=== PATIENT | female | born 1990 | race Two or more races ===

== ENCOUNTER 2023-10-10 11:15 | Inpatient (IN) | payer MEDICAID, OTHER ==
[~2023-10-10] VITALS: Ht 152.4 cm; Wt 89.8 kg
[2023-10-10] MEDS ORDERED: PENICILLIN G POT 5MIL/D5 50ML 50 ML IV ONE (12:00)
[2023-10-10] MEDS ORDERED: NALOXONE HCL 0.4 MG/ML VIAL IV ONE (12:00)
[2023-10-10] MEDS ORDERED: ROPIVACAINE 0.5% (5MG/ML) 20ML AMPULE IJ ONE (12:00)
[2023-10-10] MEDS ORDERED: LIDOCAINE HCL 2 %PF INJ 10ML AMP IJ ONE (12:00)
[2023-10-10] MEDS ORDERED: BUTORPHANOL TARTRATE 2 MG/1 ML VIAL IV PRN ×2 (12:00)
[2023-10-10] MEDS ORDERED: LACTATED RINGER'S 1,000 ML IV SCH (12:00)
[2023-10-10] MEDS ORDERED: fentaNYL CITRATE 100 MCG/2 ML VL IV ONE (12:00)
[2023-10-10] MEDS ORDERED: LACT. RINGERS/OXYTOCIN 20UNITS 1,000 ML IV SCH (12:00)
[2023-10-10] MEDS ORDERED: ePHEDrine SULFATE 50 MG/ML AMP IV ONE (12:00)
[2023-10-10] MEDS ORDERED: LIDOCAINE 2%HCL (LOCAL ANESTH.) INJ 20ML MDV IJ PRN (12:00)
[2023-10-10] MEDS: LACT. RINGERS/OXYTOCIN 20UNITS 500 ML IV ONE ×2 (12:20→12:22)
[2023-10-10] MEDS ORDERED: METHYLERGONOVINE MALEATE 0.2 MG/ML AMP IM ONE ×2 (12:21→12:22)
[2023-10-10] MEDS: WITCH HAZEL-GLYCERIN PAD TOP PRN (12:27)
[2023-10-10] MEDS: DERMOPLAST 60ML BOTTLE TOP PRN (12:27)
[2023-10-10] MEDS: PHISODERM TOP SOLN 240ML BTL TOP PRN (12:27)
[2023-10-10] MEDS ORDERED: ONDANSETRON ODT 4 MG TAB PO PRN (12:30)
[2023-10-10 13:17] LABS: Urine Bacteria NONE SEEN /hpf (None Seen); Urine Blood 2+ /uL (Negative); Urine Clarity Clear (Clear); Urine Protein, UAD Negative (Negative); Urine Specific Gravity 1.006 (1.001-1.035); Urine Urobilinogen Normal (Negative); Urine WBC 7 /hpf (0 - 5); Urine pH 6.5 (5.0-8.0)
[2023-10-10 13:19] LABS: Urine Color Straw (Yellow)
[2023-10-10 13:27] LABS: Amphetamine Screen, Urine Neg (NEGATIVE)
[2023-10-10 13:28] LABS: Barbiturate Scree,Urine Neg (NEGATIVE); Benzodiazephine Screen, Urine Neg (NEGATIVE); Cannabinoid Screen, Urine Neg (NEGATIVE); Cocaine Screen, Urine Neg (NEGATIVE); Opiate Scree,Urine Neg (NEGATIVE); Phencyclidine Screen, Urine Neg (NEGATIVE)
[2023-10-10 13:33] LABS: Basophils # (auto) 0 10 ^3/uL (0-0.2); Basophils % (auto) 0.2 % (0.0-2.0); Eosinophils # (auto) 0 10 ^3/uL (0-0.8); Eosinophils % (auto) 0.1 % (0.0-7.0); Hematocrit 42.4 % (36.0-46.0); Lymphocytes # (auto) 1.8 10 ^3/uL (0.4-5.4); Lymphocytes % (auto) 9.1 % (10.0-50.0); Mean Corpuscular Hemoglobin 29.2 pg (28.0-32.0); Mean Corpuscular Hgb Conc. 33.1 g/dL (32.0-36.0); Mean Corpuscular Volume 88.1 fL (80.0-100.0); Monocytes # (auto) 0.8 10 ^3/uL (0-1.3); Monocytes % (auto) 3.8 % (0.0-12.0); Neutrophils # (auto) 17.3 10 ^3/uL (1.6-8.6); Neutrophils % (auto) 86.8 % (37.0-80.0); Red Blood Cells 4.81 10^6/uL (4.0-5.20); Red Cell Distribution Width 13.6 % (11.8-14.3)
[2023-10-10 13:47] LABS: INR 0.92 (0.9-1.15); Partial Thromboplastin Time 27.1 SEC (24.5-34.5); Prothrombin Time 9.7 sec (9.3-11.8)
[2023-10-10 13:52] LABS: Alkaline Phosphatase 126 U/L (46-116); Calcium 9.1 mg/dL (8.5-10.1); Carbon Dioxide 19 mmol/L (20-30); Chloride 105 mmol/L (98-107)
[2023-10-10 13:53] LABS: Albumin 3.9 g/dL (3.2-4.8); Anion Gap 12 (5-15); Aspartate Aminotransferase 19 U/L (13-40); BUN/Creatinine Ratio 12.8 (10.0-20.0); Bilirubin, Total 0.5 mg/dL (0.2-1.0); Blood Urea Nitrogen 6 mg/dL (9-23); Glucose 79 mg/dL (74-106); Potassium 3.4 mmol/L (3.5-5.1); Sodium 136 mmol/L (136-145); Total Protein 6.6 g/dL (5.7-8.2)
[2023-10-10 14:23] LABS: Alanine Aminotransferase < 9 U/L (7-40)
[2023-10-10 15:12] VITALS: BP 125/74; PULSE 86; RESP 16; TEMP 98.3; O2SAT 98
[2023-10-10] MEDS ORDERED: PENICILLIN G POTASSIUM 2,500,000 UNITS in D5W 5% 50 ML IV SCH (16:00)
[2023-10-10 19:00] VITALS: BP 120/78; PULSE 91; RESP 16; TEMP 98.1; O2SAT 96
[2023-10-10] MEDS: IBUPROFEN 600 MG TAB PO PRN (19:20)
[2023-10-10] MEDS ORDERED: DOCUSATE SOD 100 MG CAP PO SCH (22:00)
[2023-10-10 23:00] VITALS: BP 120/63; PULSE 76; RESP 14; TEMP 97.8; O2SAT 95
[2023-10-11 03:15] VITALS: BP 137/65; PULSE 76; RESP 16; TEMP 98; O2SAT 97
[2023-10-11] MEDS: ACETAMINOPHEN 325 MG TAB PO PRN (03:25)
[2023-10-11 07:00] VITALS: BP 134/78; PULSE 101; RESP 16; TEMP 97.8; O2SAT 100
[2023-10-11 07:07] LABS: RPR Non Reactive (Non Reactive)
[2023-10-11] MEDS ORDERED: PREN-96 PO (08:00)
[2023-10-11 11:00] VITALS: BP 119/80; PULSE 81; RESP 16; TEMP 97.8; O2SAT 97
[2023-10-14 18:06] LABS: Treponema pallidum Ab (FTA-Ab) Non Reactive (Non Reactive)
== END 2023-10-11 14:48 | disposition home or self-care (01) | DRG 560 ==
LOC: LDRP 11:15
PROVIDERS: ADMIT Obstetrics & Gynecology; ATTEND Obstetrics & Gynecology
PROC: 10E0XZZ Delivery of Products of Conception, External Approach (ICD-10-PCS; principal; 2023-10-10)
DX: O69.81X0 Labor and delivery complicated by cord around neck, without compression, not applicable or unspecified (principal); Z37.0 Single live birth; Z91.014 Allergy to mammalian meats; Z79.899 Other long term (current) drug therapy; Z3A.39 39 weeks gestation of pregnancy
CPT/HCPCS: 36415; 59025; 59409; 80053; 80307; 81001; 81002; 85025; 85610; 85730; 86592; 94760; G0378; J2540; J2590; J7060